=== PATIENT | female | born 1930 | race Two or more races ===

== ENCOUNTER 2018-09-01 01:26 | Emergency (ER) | payer MEDICARE, OTHER ==
[~2018-09-01] VITALS: Ht 167.6 cm; Wt 68.0 kg
[2018-09-01] MEDS: cloNIDine HCL 0.1 MG TAB PO ONE ×2 (02:56→07:47)
[2018-09-01 03:21] LABS: Basophils # (auto) 0 uL; Eosinophils # (auto) 0.1 uL; Hematocrit 38.7 % (36.0-46.0); Hemoglobin 12.4 g/dL (12.2-16.2); Lymphocytes # (auto) 1.3 uL; Mean Corpuscular Hemoglobin 26.5 pg (28.0-32.0); Monocytes # (auto) 0.4 uL; Nucleated Red Blood Cells % 0.1 %; White Blood Cell 6.8 10^3/uL (4.4-10.8)
[2018-09-01 03:23] LABS: Basophils % (auto) 0.5 % (0.0-2.0); Eosinophils % (auto) 1.5 % (0.0-7.0); Lymphocytes % (auto) 19.6 % (10.0-50.0); Mean Corpuscular Hgb Conc. 31.9 g/dL (32.0-36.0); Mean Corpuscular Volume 83.2 fL (80.0-100.0); Monocytes % (auto) 5.7 % (0.0-12.0); Neutrophils # (auto) 4.9 uL; Neutrophils % (auto) 72.7 % (37.0-80.0); Platelet Count (auto) 201 10^3/uL (140-450); Red Blood Cells 4.66 10^6/uL (4.0-5.20); Red Cell Distribution Width 15.9 % (11.8-14.3)
[2018-09-01 03:38] LABS: Alanine Aminotransferase 15 U/L (13-56); Albumin 3.7 g/dL (3.4-5.0); Anion Gap 5 (5-15); Blood Urea Nitrogen 19 mg/dL (7-18); Calcium 9.1 mg/dL (8.5-10.1); Carbon Dioxide 28 mmol/L (21-32); Chloride 108 mmol/L (98-107); Glucose 115 mg/dL (74-106); Magnesium 2.2 mg/dL (1.6-2.6); Sodium 141 mmol/L (136-145)
[2018-09-01 03:43] LABS: Alkaline Phosphatase 96 U/L (45-117); Aspartate Aminotransferase 13 U/L (15-37); BUN/Creatinine Ratio 23.5; Bilirubin, Total 0.5 mg/dL (0.2-1.0); GFR African American 86 mL/min; GFR Non-African American 71 mL/min; Total Protein 7.3 g/dL (6.4-8.2)
[2018-09-01 07:42] VITALS: BP 117/77
== END 2018-09-01 07:49 | disposition home or self-care (01) ==
LOC: EDBD 01:26 → ER 01:26
DX: I10 Essential (primary) hypertension (principal); R42 Dizziness and giddiness; Z88.0 Allergy status to penicillin
CPT/HCPCS: 36415; 80053; 83735; 84484; 85025

== ENCOUNTER 2019-05-21 15:05 | Inpatient (IN) | payer MEDICARE ==
[~2019-05-21] VITALS: Ht 167.6 cm; Wt 39.1 kg
[2019-05-21 16:03] LABS: Basophils # (auto) 0.1 uL; Eosinophils # (auto) 0.1 uL; Lymphocytes # (auto) 1.4 uL; Monocytes # (auto) 0.2 uL; Monocytes % (auto) 5.6 % (0.0-12.0); Platelet Count (auto) 206 10^3/uL (140-450)
[2019-05-21 16:05] LABS: Basophils % (auto) 1.1 % (0.0-2.0); Eosinophils % (auto) 2.1 % (0.0-7.0); Hematocrit 42.7 % (36.0-46.0); Hemoglobin 13.9 g/dL (12.2-16.2); Lymphocytes % (auto) 31.8 % (10.0-50.0); Mean Corpuscular Hemoglobin 27.1 pg (28.0-32.0); Mean Corpuscular Hgb Conc. 32.6 g/dL (32.0-36.0); Mean Corpuscular Volume 83.1 fL (80.0-100.0); Neutrophils # (auto) 2.6 uL; Neutrophils % (auto) 59.4 % (37.0-80.0); Red Blood Cells 5.14 10^6/uL (4.0-5.20); Red Cell Distribution Width 16.2 % (11.8-14.3); White Blood Cell 4.5 10^3/uL (4.4-10.8)
[2019-05-21 16:22] LABS: Albumin 4.1 g/dL (3.4-5.0); Anion Gap 10 (5-15); BUN/Creatinine Ratio 18.9; Blood Urea Nitrogen 20 mg/dL (7-18); Calcium 9.5 mg/dL (8.5-10.1); Carbon Dioxide 30 mmol/L (21-32); Chloride 104 mmol/L (98-107); GFR African American 63 mL/min; GFR Non-African American 52 mL/min; Glucose 126 mg/dL (74-106); Potassium 3.4 mmol/L (3.5-5.1); Sodium 144 mmol/L (136-145)
[2019-05-21 16:27] LABS: Alanine Aminotransferase 10 U/L (13-56); Alkaline Phosphatase 74 U/L (45-117); Aspartate Aminotransferase 14 U/L (15-37); Bilirubin, Total 1.2 mg/dL (0.2-1.0); Total Protein 7.7 g/dL (6.4-8.2)
[2019-05-21 21:58] LABS: INR 1.18 (0.9-1.15); Partial Thromboplastin Time 28.2 sec (23.64-32.05)
[2019-05-21 22:02] LABS: Magnesium 1.9 mg/dL (1.6-2.6)
[2019-05-21] MEDS ORDERED: LEVOFLOXACIN 750MG 150 ML IV ONE (23:30)
[2019-05-22] MEDS ORDERED: DOCUSATE SOD 100 MG CAP PO PRN (01:00)
[2019-05-22] MEDS ORDERED: ACETAMINOPHEN 500 MG TAB PO PRN (01:00)
[2019-05-22] MEDS ORDERED: ONDANSETRON HCL 4 MG/2 ML VIAL IV PRN (01:00)
[2019-05-22] MEDS ORDERED: TEMAZEPAM 15 MG CAP PO PRN (01:00)
[2019-05-22 02:23] VITALS: BP 155/64
[2019-05-22 05:00] VITALS: BP 137/65
[2019-05-22 06:15] LABS: Basophils # (auto) 0 uL; Basophils % (auto) 0.4 % (0.0-2.0); Eosinophils # (auto) 0.1 uL; Eosinophils % (auto) 2.9 % (0.0-7.0); Hematocrit 38.5 % (36.0-46.0); Hemoglobin 11.9 g/dL (12.2-16.2); Lymphocytes # (auto) 1.4 uL; Lymphocytes % (auto) 30.9 % (10.0-50.0); Mean Corpuscular Hemoglobin 26.9 pg (28.0-32.0); Mean Corpuscular Volume 86.8 fL (80.0-100.0); Monocytes # (auto) 0.5 uL; Neutrophils # (auto) 2.6 uL; Neutrophils % (auto) 55.8 % (37.0-80.0); Nucleated Red Blood Cells % 0.3 %; Platelet Count (auto) 153 10^3/uL (140-450); Red Blood Cells 4.43 10^6/uL (4.0-5.20); Red Cell Distribution Width 16.5 % (11.8-14.3); White Blood Cell 4.6 10^3/uL (4.4-10.8)
[2019-05-22 06:36] LABS: Potassium 3.4 mmol/L (3.5-5.1)
[2019-05-22 06:43] LABS: BUN/Creatinine Ratio 27.3; Calcium 8.7 mg/dL (8.5-10.1)
[2019-05-22 08:39] VITALS: BP 133/65
[2019-05-22] MEDS: PANTOPRAZOLE 40 MG TAB PO SCH (10:29)
[2019-05-22 13:23] VITALS: BP 154/73
[2019-05-22 16:56] VITALS: BP 149/43
[2019-05-22] MEDS ORDERED: LEVOFLOXACIN 500MG 100 ML IV ONE (20:00)
[2019-05-22 22:11] VITALS: BP 145/46
[2019-05-23 04:25] VITALS: BP 137/49
[2019-05-23 09:00] VITALS: BP 132/68
[2019-05-23] MEDS: LEVOFLOXACIN 250MG 50 ML IV SCH (09:46)
[2019-05-23] MEDS: PANTOPRAZOLE 40 MG TAB PO SCH (09:46)
[2019-05-23 13:00] VITALS: BP 111/61
[2019-05-23 17:01] VITALS: BP 136/64
[2019-05-23 18:59] LABS: Urine Bacteria NONE SEEN /hpf (None Seen); Urine Blood Negative /uL (Negative); Urine Specific Gravity 1.009 (1.001-1.035); Urine WBC 9 /hpf (0 - 5)
[2019-05-23 22:00] VITALS: BP 150/67
[2019-05-24 05:35] VITALS: BP 137/64
[2019-05-24 09:17] VITALS: BP 155/67
[2019-05-24] MEDS: LEVOFLOXACIN 250MG 50 ML IV SCH (09:59)
[2019-05-24] MEDS: PANTOPRAZOLE 40 MG TAB PO SCH (09:59)
[2019-05-24 13:00] VITALS: BP_SYST 124; BP_SYST 129; BP_DIAS 58; BP_DIAS 68
[2019-05-24 17:21] VITALS: BP 133/59
[2019-05-24 22:01] VITALS: BP 138/64
[2019-05-25 05:49] VITALS: BP 147/65
[2019-05-25 09:11] LABS: BUN/Creatinine Ratio 18.3; Calcium 8.8 mg/dL (8.5-10.1); Potassium 3.5 mmol/L (3.5-5.1)
[2019-05-25] MEDS: LEVOFLOXACIN 250MG 50 ML IV SCH (09:34)
[2019-05-25] MEDS: PANTOPRAZOLE 40 MG TAB PO SCH (09:34)
[2019-05-25 11:43] VITALS: BP 117/48
== END 2019-05-25 13:20 | disposition home or self-care (01) | DRG 193 ==
LOC: ER 15:05 → OVERFLOW 15:06 → EAST 05-22 02:05
PROVIDERS: ADMIT Nurse Practitioner Family; ATTEND Internal Medicine
DX: J13 Pneumonia due to Streptococcus pneumoniae (principal); G93.41 Metabolic encephalopathy; Z68.1 Body mass index [BMI] 19.9 or less, adult; R53.1 Weakness; E87.6 Hypokalemia; E86.0 Dehydration; F02.80 Dementia in other diseases classified elsewhere, unspecified severity, without behavioral disturbance, psychotic disturbance, mood disturbance, and anxiety; G30.9 Alzheimer's disease, unspecified; I10 Essential (primary) hypertension; K43.9 Ventral hernia without obstruction or gangrene; K57.90 Diverticulosis of intestine, part unspecified, without perforation or abscess without bleeding; Z86.73 Personal history of transient ischemic attack (TIA), and cerebral infarction without residual deficits; Z90.49 Acquired absence of other specified parts of digestive tract; Z90.710 Acquired absence of both cervix and uterus; Z88.0 Allergy status to penicillin; R42 Dizziness and giddiness; R63.6 Underweight
CPT/HCPCS: 36415; 70450; 71045; 71250; 74176; 80048; 80053; 81001; 83735; 83880; 84443; 84484; 85025; 85610; 85730; 87040; 96365; 97116; 97163; 97530; G0378; J1956